=== PATIENT | female | born 1970 | race Caucasian/White ===

== ENCOUNTER 2017-07-17 10:43 | Emergency (ER) | payer BC ==
[~2017-07-17] VITALS: Ht 170.2 cm; Wt 68.0 kg
[~2017-07-17 10:43] MED LIST: CELEXA40 MG PO; FERROCITE324 MG PO; TRAZODONE HCL50 MG PO; ZOFRAN ODT4 MG PO
[2017-07-17] MEDS ORDERED: ZYRTEC-D TABLE1 EACH PO (11:05)
[2017-07-17] MEDS ORDERED: PHENERGAN25 MG (11:07)
[2017-07-17] MEDS ORDERED: PERCOCET 5-3251 EACH PO (11:08)
[2017-07-17] MEDS ORDERED: COMPAZINE25 MG PR (11:08)
[2017-07-17] MEDS ORDERED: IMITREX50 MG PO (13:44)
== END 2017-07-17 14:05 | disposition home or self-care (01) ==
LOC: ED 10:43
DX: G43.909 Migraine, unspecified, not intractable, without status migrainosus (principal); Z88.1 Allergy status to other antibiotic agents; Z79.899 Other long term (current) drug therapy
CPT/HCPCS: 96361; 96374; 96375; 96376; 99283; J1200; J1885; J2550; J2765; J7030

== ENCOUNTER 2021-04-09 14:25 | Emergency (ER) | payer BC ==
[~2021-04-09] VITALS: Ht 170.2 cm; Wt 68.0 kg
[~2021-04-09 14:25] MED LIST changes: +COMPAZINE25 MG PR; +IMITREX50 MG PO; +PERCOCET 5-3251 EACH PO; +PHENERGAN25 MG; +ZYRTEC-D TABLE1 EACH PO
[2021-04-09] MEDS ORDERED: ONDANSETRON ODT8 MG PO (19:00)
== END 2021-04-09 19:56 | disposition home or self-care (01) ==
LOC: ED 14:25
DX: U07.1 COVID-19 (principal); G43.909 Migraine, unspecified, not intractable, without status migrainosus; Z88.1 Allergy status to other antibiotic agents; Z79.899 Other long term (current) drug therapy
CPT/HCPCS: 80053; 85025; 96374; 96375; 99284-25; C9803; J1885; J2405; J2550; J7030; U0003